=== PATIENT | male | born 2000 | race Caucasian/White ===

== ENCOUNTER 2021-03-12 06:32 | Emergency (ER) | payer OTHER, SELFPAY ==
[2021-03-12 06:36] VITALS: TEMP 35.7; BMI 35.9
--- NOTE | 2021-03-12 06:48 | ED_ITS ---
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 The dorsum of his foot has a small puncture wound which is increasingly tender and his foot is more swollen. He does not have any obvious cellulitis or lymphangitic spread. He is due for tetanus dating. Related Data Previous Rx's Medication Instructions Recorded sulfamethoxazole 800 1 tab PO BID #10 tab 03/12/21 mg-trimethoprim 160 mg tablet (Bactrim DS) Review of Systems Review of Systems Narrative: Remainder of complete review of systems is otherwise unremarkable except for that included in the HPI. Patient History Social History Smoking Status: Never smoker Smoking Status: Never smoker Substance Use Type: marijuana Exam Narrative Exam Narrative: General: Alert appropriate in no acute distress Respiratory: Able to speak in full sentences, no obvious respiratory distress Skin: No obvious rashes, warm and dry Neurologic: Grossly intact no obvious asymmetries or abnormalities Psych: appropriate insight and affect, cooperative Extremity: Puncture wound to the dorsum of the left forefoot with mild surrounding erythema, no drainage, no abscess development and no obvious lymphangitis spread Initial Vital Signs Initial Vital Signs: Vital Signs Temperature 96.2 F L 03/12/21 06:36 Course Orders Ordered: Discontinued Medications Tetanus/Diphtheria Toxoids (Tetanus Diphtheria Toxoids 0.5 Ml Vial) 0.5 ml IM .ONCE ONE Stop: 03/12/21 06:43 Last Admin: 03/12/21 06:50 Dose: 0.5 ml Documented by: ANGELICA Trimethoprim/Sulfamethoxazole (Trimeth/Sulfa 160/800 (Ds) Tablet) 1 tab PO NOW ONE Stop: 03/12/21 06:53 Last Admin: 03/12/21 06:55 Dose: 1 tab Documented by: ANGELICA Vital Signs Vital signs: Vital Signs - 8 hr 03/12/21 06:36 Temperature 96.2 F L MDM - Extremity Injury (Lower) MDM Narrative Medical decision making narrative: 20-year-old young man stepped on a nail through the bottom of a 10 issue with puncture wound to the dorsum of the left foot with increasing edema and pain. Wound has been cleaned thoroughly. He is given a tetanus update and will be started on Septra antibiotics for concerns of deeper tissue infection. Concerns are reviewed and he is safe for home discharge Discharge Plan Departure Patient Disposition: Home Clinical Impression: Puncture wound of foot Qualifiers: Encounter type: initial encounter Laterality: left Qualified Code(s): S91.332A - Puncture wound without foreign body, left foot, initial encounter Instructions: DI for Puncture Wound Activity Restrictions/Additional Instructions: Thank you for coming in today Your foot is definitely more swollen however you do not have any obvious abscess or cellulitis (infection of the skin). I a.m. concerned with stepping on the nail that you are developing an infection deeper and your foot causing the increased pain and the swelling. Using 400 mg of ibuprofen (2 yvkb-fyl-pevoqif pills) and 1 Tylenol every 6 hours can be very helpful in controlling pain. Keeping the foot elevated can also help over the next couple of days. Please complete the 5 day course of Septra, antibiotic. If you find that you are getting worse, there is now redness, drainage or red streaks heading appear like need to return to the emergency department You did have a tetanus shot today and should do well with this for the next 10 years and LEs you have another obvious injury. Prescriptions: New sulfamethoxazole-trimethoprim [Bactrim DS] 800-160 mg tablet 1 tab PO BID Qty: 10 RF: 0
[2021-03-12] MEDS: TETANUS DIPHTHERIA TOXOIDS 0.5 ML VIAL IM (06:50)
[2021-03-12] MEDS: TRIMETH/SULFA 160/800 (DS) TABLET 1 TAB PO (06:55)
== END 2021-03-12 07:08 | disposition home or self-care (01) ==
PROVIDERS: Emergency Provider Emergency Medicine
DX: S91.332A Puncture wound without foreign body, left foot, initial encounter (principal); W45.0XXA Nail entering through skin, initial encounter; Z23 Encounter for immunization
CPT/HCPCS: 90471; 90714; 99283

== ENCOUNTER 2021-05-10 10:08 | Emergency (ER) | payer OTHER, SELFPAY ==
[2021-05-10 10:24] VITALS: BP 113/56; PULSE 59; RESP 16; TEMP 36.7; O2SAT 99; BMI 38.9
--- NOTE | 2021-05-10 10:36 | ED.TRAUMA ---
HPI - Trauma General Chief Complaint: Trauma Stated Complaint: Fell of Roof 8'-10', Hip and Back Pain Time Seen by Provider: 05/10/21 10:35 Source: patient and family Mode of arrival: Ambulatory Limitations: no limitations History of Present Illness HPI narrative: This is a 20-year-old male who comes to emergency department after falling off the roof while at work Patient states this occurred yesterday. He was on a one-story housing addition. He states he sort of slid down the roof when his shoe fell off and then patient fell landing on his feet and then falling off to his left side onto dirt. Patient denies hitting his head. He denies loss of consciousness. His complaints are some lower lumbar pain and some left hip pain. He has been ambulating without issue. He denies any loss of bowel or bladder control. No numbness, tingling weakness. He states he has had a normal gait. He denies any chest pain or shortness of. No neck pain. Patient has not had any nausea or vomiting or other GI symptoms. He is otherwise healthy male. Up-to-date on immunizations. No prior surgeries. His only allergies are to bees. He is accompanied by his mother today. Related Data Allergies Allergy/AdvReac Type Severity Reaction Status Date / Time No Known Drug Allergies Allergy Verified 05/10/21 10:28 Review of Systems Review of Systems ROS Unobtainable: All systems reviewed & are unremarkable except as noted in HPI and below Patient History Social History Smoking Status: Never smoker Smoking Status: Never smoker alcohol intake frequency: 0-2 drinks per day Substance Use Type: does not use Exam Narrative Exam Narrative: GEN: Patient appears in mild distress. HEAD: No evidence of trauma, no raccoon/Agosto sign. NECK: Nontender, painless range of motion, trachea midline Negative Nexus criteria, there is no mid line tenderness, distracting injury, altered mental status, neuro deficit, recent EtOH. EYES: PERRLA, EOMI ENT: External inspection normal, trachea is midline, TM's are normal no hemotypanum, Nares are clear, no septal hematoma, no dental or oral injury, airway is normal and with normal occlusion, No bony tenderness RESP: Chest is nontender and has symmetric movement, no ecchymosis, breath sounds are normal no crackles, wheezes or rales CVS: Heart sounds are normal, no murmur noted, No JVD. ABG/GI: Nontender, soft, normal bowel sounds, no distention, no organomegaly, pelvic rock is negative NEURO: Oriented AOx3, neuro is grossly intact, sensation and motor is normal all 4 extremities moving, cranial nerves II through XII are intact, GCS is 15 PSYCH: Normal mood and affect SKIN: Intact, warm and dry, no crepitus and without decubitus. No ecchymosis or skin changes noted. BACK: No CVA tenderness, mild lower lumbar vertebral tenderness but no discrete point tenderness, no step-off's, no crepitus EXT: Atraumatic, Left hip is mildly tender, right hip is nontender. no pedal edema, normal color and temperature, normal range of motion of extremities with normal tendon exam, 2+ pulses in all four extremities Initial Vital Signs Initial Vital Signs: Vital Signs Temperature 98.1 F 05/10/21 10:24 Pulse Rate 59 L 05/10/21 10:24 Respiratory Rate 16 05/10/21 10:24 Blood Pressure 113/56 L 05/10/21 10:24 Pulse Oximetry 99 05/10/21 10:24 Course Orders Ordered: ED Orders 05/10/21 10:44 XR hip w pel if done LT 2V Stat XR lumbar spine 2-3V Stat Vital Signs Vital signs: Vital Signs - 8 hr 05/10/21 12:10 Pulse Rate 57 L Respiratory Rate 18 Blood Pressure 121/61 Pulse Oximetry 100 MDM - Trauma Imaging Data lsorono xray: Radiologist's Impression: Launch?[address] [address] XRay Report Signed Patient: Curtis White MR#: [id number] : 2000 Acct:[id number] Age/Sex: 20 / M Date of Service: 05/10/21 Loc: ED Accession Number: [id number] ?? Procedure: XR lumbar spine 2-3V Ordering Provider: Marce Escobar D.O. PROCEDURE:? XR LUMBAR SPINE 2-3V ? INDICATIONS:? fell off roof, ? TECHNIQUE:? 3 views of the lumbar spine were acquired.? ? COMPARISON:? None. ? FINDINGS:? ? Bones:? 5 eta-cmk-jopgayo vertebrae are present.? There is trace retrolisthesis of L5 on S1.? No vertebral body compression fractures.? No suspicious bony lesions.? ? Soft tissues:? Overlying bowel gas pattern is normal.? No suspicious soft tissue calcifications.? ? ? IMPRESSION:? No visualized acute fracture or dislocation. However, if clinical concern and/or pain persist, short interval imaging followup in 7-10 days is recommended, as occult injury cannot be definitively excluded. ? ? Dictated by: Marah Rodas M.D. on 05/10/2021 at 11:11 ? ? Approved by: Marah Rodas M.D. on 05/10/2021 at 11:14?? left hip xray: Radiologist's Impression: Launch?[place] [address] XRay Report Signed Patient: Curtis White MR#: [id number] : 2000 Acct:[id number] Age/Sex: 20 / M Date of Service: 05/10/21 Loc: ED Accession Number: [id number] ?? Procedure: XR hip w pel if done LT 2V Ordering Provider: Marce Escobar D.O. PROCEDURE:? XR HIP W PEL IF DONE LT 2V ? INDICATIONS:? fell off roof, left hip pain, low back pain ? TECHNIQUE:? AP pelvis with lateral view(s) of the leftNo visualized acute fracture or dislocation. However, if clinical concern and/or pain persist, short interval imaging followup in 7-10 days is recommended, as occult injury cannot be definitively excluded. hip(s).? ? COMPARISON:? None. ? FINDINGS:? ? Bones:? No fractures or dislocations.? Pelvic ring appears intact.? No suspicious bony lesions.? ? Soft tissues:? The visualized bowel gas pattern is normal.? No suspicious soft tissue calcifications.? ? ? IMPRESSION:? No visualized acute fracture or dislocation. However, if clinical concern and/or pain persist, short interval imaging followup in 7-10 days is recommended, as occult injury cannot be definitively excluded. ? Dictated by: Marah Rodas M.D. on 05/10/2021 at 11:10 ? ? Approved by: Marah Rodas M.D. on 05/10/2021 at 11:11? MDM Narrative Medical decision making narrative: This is a 20-year-old male who had a fall was approximately 10-12 feet from 1 story roof. Patient slid off the roof landing on his heels. Patient complaining of left hip and lower lumbar pain. Is fairly reassuring exam he has been weight-bearing, imaging does not show any acute fracture or injury. Return precautions discussed. Patient is recommended to follow up with L&I if he continues to have symptoms over the next week and asked to return if he has any worsening or concerning symptoms. Discharge Plan Departure Patient Disposition: Home Clinical Impression: Hip pain, left, Fall from roof as cause of accidental injury Low back pain Qualifiers: Chronicity: acute Back pain laterality: midline Sciatica presence: without sciatica Qualified Code(s): M54.5 - Low back pain Instructions: DI for Low Back Pain Activity Restrictions/Additional Instructions: Follow-up in the next week if you are not having improvement of your symptoms or if they are worsening in any way. Call L&I to set up a follow-up appointment. You may take Tylenol up to a 1000 mg every 8 hours and or ibuprofen up to 800 mg every 8 hours as needed for pain. Your x-ray imaging at this time does not show an obvious fracture or break. Please return for fevers, rapidly worsening pain, new numbness, tingling or weakness, loss of bowel or bladder control, difficulty or inability ambulate, or other new or concerning symptoms.
--- NOTE | 2021-05-10 10:44 | DI.RAD.S_ITS ---
PROCEDURE: XR HIP W PEL IF DONE LT 2V INDICATIONS: fell off roof, left hip pain, low back pain TECHNIQUE: AP pelvis with lateral view(s) of the leftNo visualized acute fracture or dislocation. However, if clinical concern and/or pain persist, short interval imaging followup in 7-10 days is recommended, as occult injury cannot be definitively excluded. hip(s). COMPARISON: None. FINDINGS: Bones: No fractures or dislocations. Pelvic ring appears intact. No suspicious bony lesions. Soft tissues: The visualized bowel gas pattern is normal. No suspicious soft tissue calcifications. IMPRESSION: No visualized acute fracture or dislocation. However, if clinical concern and/or pain persist, short interval imaging followup in 7-10 days is recommended, as occult injury cannot be definitively excluded. Dictated by: Marah Rodas M.D. on 05/10/2021 at 11:10 Approved by: Marah Rodas M.D. on 05/10/2021 at 11:11
--- NOTE | 2021-05-10 10:44 | DI.RAD.S_ITS ---
PROCEDURE: XR LUMBAR SPINE 2-3V INDICATIONS: fell off roof, TECHNIQUE: 3 views of the lumbar spine were acquired. COMPARISON: None. FINDINGS: Bones: 5 woo-xxz-zhuuxco vertebrae are present. There is trace retrolisthesis of L5 on S1. No vertebral body compression fractures. No suspicious bony lesions. Soft tissues: Overlying bowel gas pattern is normal. No suspicious soft tissue calcifications. IMPRESSION: No visualized acute fracture or dislocation. However, if clinical concern and/or pain persist, short interval imaging followup in 7-10 days is recommended, as occult injury cannot be definitively excluded. Dictated by: Marah Rodas M.D. on 05/10/2021 at 11:11 Approved by: Marah Rodas M.D. on 05/10/2021 at 11:14
[2021-05-10 12:10] VITALS: BP 121/61; PULSE 57; RESP 18; O2SAT 100
== END 2021-05-10 12:12 | disposition home or self-care (01) ==
PROVIDERS: Emergency Provider Emergency Medicine
DX: M54.5 Low back pain (principal); M25.552 Pain in left hip; W13.2XXA Fall from, out of or through roof, initial encounter; Y99.0 Civilian activity done for income or pay
CPT/HCPCS: 72100; 73502; 99283; 99284

== ENCOUNTER 2023-04-19 14:46 | Emergency (ER) | payer OTHER, SELFPAY ==
[2023-04-19 14:48] VITALS: BP 121/68; PULSE 55; RESP 18; TEMP 37.1; O2SAT 100; BMI 33.9
--- NOTE | 2023-04-19 14:54 | DI.RAD.S_ITS ---
PROCEDURE: XR RIBS LT MIN 3V W CXR1V INDICATIONS: fall/pain TECHNIQUE: 2 views of the left ribs were acquired, along with a single view chest. COMPARISON: None. FINDINGS: Surgical changes and devices: None. Bones and chest wall: No fractures or dislocations. No suspicious bony lesions. Overlying soft tissues appear unremarkable. Lungs and pleura: No pleural effusions or pneumothorax. Lungs appear clear. Mediastinum: Mediastinal contours appear normal. Heart size is normal. IMPRESSION: Chest without acute cardiopulmonary abnormalities. No acute, displaced rib fractures visualized. Dictated by: Rudy Stock M.D. on 04/19/2023 at 15:27 Approved by: Rudy Stock M.D. on 04/19/2023 at 15:28
--- NOTE | 2023-04-19 14:54 | DI.RAD.S_ITS ---
PROCEDURE: XR HIP W PEL IF DONE LT 2V INDICATIONS: fall/pain TECHNIQUE: AP pelvis with lateral view(s) of the right hip(s). COMPARISON: [facility], , XR HIP W PEL IF DONE LT 2V, 05/10/2021, 10:42. FINDINGS: Bones: No fractures or dislocations. Pelvic ring appears intact. No suspicious bony lesions. Soft tissues: The visualized bowel gas pattern is normal. No suspicious soft tissue calcifications. IMPRESSION: Right hip without acute fracture or dislocation. If there are persistent symptoms or clinical suspicion for pathology, then repeat radiographs or advanced imaging (CT or MRI) may be considered for further evaluation. Dictated by: Rudy Stock M.D. on 04/19/2023 at 15:28 Approved by: Rudy Stock M.D. on 04/19/2023 at 15:29
--- NOTE | 2023-04-19 14:54 | ED_ITS ---
HPI - Back Pain/Injury General Chief Complaint: Back Pain/Injury Stated Complaint: Fell from roof Time Seen by Provider: 04/19/23 14:53 Source: patient History of Present Illness HPI Narrative: This is a 22-year-old male presents emergency department after falling off a roof. Patient reports that he lost his footing yesterday afternoon and fell off and on proximally 8 ft roof. States he landed and injured his hips, more on the left side as well as his left ribs. He states he hit his head but did not lose conscious. He denies any nausea, vomiting, dizziness, or any other concerning symptoms. Also complaining of mild left sided cervical pain. Denies any chest pain, shortness breath, abdominal pain, or any other concerning signs or symptoms. Related Data Allergies Allergy/AdvReac Type Severity Reaction Status Date / Time No Known Drug Allergies Allergy Verified 05/10/21 10:28 Review of Systems Review of Systems Narrative: GENERAL: Denies chills, fatigue, malaise, fever, sweats. HEENT: Denies sinus pain, ear pain, sore throat, difficulty swallowing, dizziness. RESPIRATORY: Denies dyspnea, cough, wheezing, hemoptysis, sputum. CARDIOVASCULAR: Denies chest pain, palpitations, orthopnea, edema, GASTROINTESTINAL: Denies nausea, vomiting, abdominal pain, diarrhea, constipation, melena. : Denies dysuria, frequency, incontinence, hematuria, urinary retention. MUSCULOSKELETAL: Reports right hip, left rib, and left neck pain. SKIN: Denies rash, skin lesions, or other NEUROLOGIC: Denies weakness, headache, numbness, change in speech, confusion, seizures, incoordination. PSYCHIATRIC: No concerning psychosocial issues. 12 point review of systems is negative except for those stated above Patient History Social History Smoking Status: Never smoker Smoking Status: Never smoker alcohol intake frequency: holidays/special occasions only Substance Use Type: marijuana Exam Narrative Exam Narrative: GENERAL: Well-developed patient, in mild distress. HEAD: Atraumatic. Normocephalic. EYES: Pupils equal round and reactive. Extraocular motions intact. No scleral icterus. No injection or drainage. ENT: Nose without bleeding, purulent drainage. Throat without erythema, tonsillar hypertrophy or exudate. Airway patent. NECK: Trachea midline. Non tender CARDIOVASCULAR: Regular rate and rhythm without murmurs, gallops, or rubs. Tenderness to palpation to the anterior left ribs, no crepitus felt. RESPIRATORY: Clear to auscultation. Breath sounds equal bilaterally. No wheezes, rales, or rhonchi. GASTROINTESTINAL: Abdomen soft, non-tender, nondistended. EXTREMITIES: Tenderness to palpation to the right hip BACK: Nontender without deformity or crepitance. No flank tenderness. Tenderness to palpation to the cervical paraspinal muscles. NEURO: AOx3. SKIN: No rash or erythema of visible areas Initial Vital Signs Initial Vital Signs: Vital Signs Temperature 98.7 F 04/19/23 14:48 Pulse Rate 55 L 04/19/23 14:48 Respiratory Rate 18 04/19/23 14:48 Blood Pressure 121/68 04/19/23 14:48 Pulse Oximetry 100 04/19/23 14:48 Oxygen Delivery Method Room Air 04/19/23 14:48 Course Orders Ordered: ED Orders 04/19/23 14:54 XR hip w pel if done LT 2V Stat XR ribs LT min 3V w CXR1V Stat Vital Signs Vital signs: Vital Signs - 8 hr 04/19/23 14:48 Temperature 98.7 F Pulse Rate 55 L Respiratory Rate 18 Blood Pressure 121/68 Pulse Oximetry 100 Oxygen Delivery Method Room Air MDM - Back Pain/Injury Imaging Data Extremity x-ray #1: Radiologist's Impression: [address] [address] XRay Report Signed Patient: Curtis White MR#: [id number] : 2000 Acct:[id number] Age/Sex: 22 / M Date of Service: 04/19/23 Loc: ED Accession Number: [id number] ?? Procedure: XR hip w pel if done LT 2V Ordering Provider: Marce Burton MD PROCEDURE:? XR HIP W PEL IF DONE LT 2V ? INDICATIONS:? fall/pain ? TECHNIQUE:? AP pelvis with lateral view(s) of the right hip(s).? ? COMPARISON:? [facility], CR, XR HIP W PEL IF DONE LT 2V, 05/10/2021, 10:42. ? FINDINGS:? ? Bones:? No fractures or dislocations.? Pelvic ring appears intact.? No suspicious bony lesions.? ? Soft tissues:? The visualized bowel gas pattern is normal.? No suspicious soft tissue calcifications.? ? ? IMPRESSION:? Right hip without acute fracture or dislocation. ? If there are persistent symptoms or clinical suspicion for pathology, then repeat radiographs or advanced imaging (CT or MRI) may be considered for further evaluation. ? ? ? Dictated by: Rudy Stock M.D. on 04/19/2023 at 15:28 ? ? Approved by: Rudy Stock M.D. on 04/19/2023 at 15:29 ? L rib XR: Radiologist's Impression: [address] [address] XRay Report Signed Patient: Curtis White MR#: [id number] : 2000 Acct:[id number] Age/Sex: 22 / M Date of Service: 04/19/23 Loc: ED Accession Number: [id number] ?? Procedure: XR ribs LT min 3V w CXR1V Ordering Provider: Marec Burton MD PROCEDURE:? XR RIBS LT MIN 3V W CXR1V ? INDICATIONS:? fall/pain ? TECHNIQUE:? 2 views of the left ribs were acquired, along with a single view chest.? ? COMPARISON:? None. ? FINDINGS:? ? Surgical changes and devices:? None.? ? Bones and chest wall:? No fractures or dislocations.? No suspicious bony lesions.? Overlying soft tissues appear unremarkable.? ? Lungs and pleura:? No pleural effusions or pneumothorax.? Lungs appear clear.? ? Mediastinum:? Mediastinal contours appear normal.? Heart size is normal.? ? IMPRESSION:? Chest without acute cardiopulmonary abnormalities.? No acute, displaced rib fractures visualized. ? ? Dictated by: Rudy Stock M.D. on 04/19/2023 at 15:27 ? ? Approved by: Rudy Stock M.D. on 04/19/2023 at 15:28 ? MDM Narrative Medical decision making narrative: MDM * differential diagnosis includes but not limited to pelvic fracture, left rib fracture * Prior records reviewed: Patient was seen here 2 years ago after falling off a roof as well. X-rays ordered which showed no fractures. * My lab interpretation: None * My imaging interpretation: X-rays negative for fractures * Clinical Decision Rules/Scores evaluated: None * Independent discussions with: None ED Course: This is a 22-year-old male presents emergency department after falling off a roof. He did present with some neck pain but primarily to the left paraspinal muscle area and did not have any midline tenderness to palpation. No CT C-spine ordered. Patient was having right hip and left rib pain x-rays were negative. Will discharge home with instructions for conservative management. Shared Decision Making: Discussed plan with patient who is comfortable with the plan. Social Considerations: None Disposition: Discharged home Discharge Plan Departure Patient Disposition: Home Clinical Impression: Fall Activity Restrictions/Additional Instructions: Thank you for coming to the [facility] Emergency Department today. Your hip and rib x-rays were negative for fractures. I suspect her symptoms should improve over the next couple of days with light activity, and ibuprofen and Tylenol as needed for the pain. Please be careful with future jaime. I hope you feel better soon. Please follow up with your primary care provider within a week. If you do not have a primary care provider please contact the [facility] Resource line at [phone]. They will ask some questions about your medical history and help you get set up with a provider in the community. Stand Alone Forms: Patient Portal/API, Work Release Note
== END 2023-04-19 15:53 | disposition home or self-care (01) ==
PROVIDERS: Emergency Provider Physician Assistant Medical
DX: M54.2 Cervicalgia (principal); M25.551 Pain in right hip; R07.81 Pleurodynia; W17.89XA Other fall from one level to another, initial encounter; Y99.0 Civilian activity done for income or pay
CPT/HCPCS: 71101; 73502; 99281; 99283

== ENCOUNTER 2024-09-18 16:49 | Emergency (ER) | payer OTHER, SELFPAY ==
[2024-09-18 17:02] VITALS: BP 153/74; PULSE 64; RESP 14; TEMP 36.4; O2SAT 100; BMI 38.0
--- NOTE | 2024-09-18 17:09 | DI.RAD.S_ITS ---
PROCEDURE: XR ANKLE LT MIN 3V INDICATIONS: fall with pain yesterday TECHNIQUE: 3 views of the ankle were acquired. COMPARISON: None. FINDINGS: Bones: No fractures or dislocations. Ankle mortise is normally aligned. No suspicious bony lesions. Soft tissues: Moderate tibiotalar joint effusion. Achilles tendon appears normal. IMPRESSION: No acute bony abnormality. Moderate joint effusion. Internal derangement not excluded. Dictated by: Lawrence Espinoza M.D. on 09/18/2024 at 17:26 Approved by: Lawrence Espinoza M.D. on 09/18/2024 at 17:27
[2024-09-18 17:26] VITALS: PULSE 74
--- NOTE | 2024-09-18 17:51 | ED.LOWEXIN ---
HPI - Extremity Injury (Lower) <Blanca Contreras PA-C - Last Filed: 09/18/24 20:04> General Chief Complaint: Extremity Injury, Lower Stated Complaint: Twisted left ankle yest; swollen and bruised Time Seen by Provider: 09/18/24 17:51 Source: patient Mode of arrival: Ambulatory History of Present Illness HPI Narrative: Curtis White is a very pleasant 24-year-old male with no reported past medical history who presents to emergency department for left ankle injury that occurred yesterday. Patient states he was jumping out of a truck landing on his left foot when he accidentally landed on a backpack causing his left ankle to roll inward, landing directly on the lateral aspect of the ankle. He has been having worsening pain and swelling of the left ankle since then. Pain with weight-bearing as well. No other injuries from the fall. Denies any other concerns. He took Tylenol earlier today. 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 Related Data Allergies Allergy/AdvReac Type Severity Reaction Status Date / Time No Known Drug Allergies Allergy Verified 05/10/21 10:28 Review of Systems <Blanca Contreras PA-C - Last Filed: 09/18/24 20:04> Review of Systems ROS Unobtainable: All systems reviewed & are unremarkable except as noted in HPI and below Patient History <Blanca Contreras PA-C - Last Filed: 09/18/24 20:04> Social History Smoking Status: Never smoker Smoking Status: Never smoker alcohol intake frequency: holidays/special occasions only Exam <Blanca Contreras PA-C - Last Filed: 09/18/24 20:04> Narrative Exam Narrative: GENERAL: 24 year old patient appears stated age. Well-developed patient, in no acute distress. HEAD: Atraumatic. Normocephalic. CARDIOVASCULAR: Regular rate and rhythm. RESPIRATORY: ?Nonlabored respirations. ?Speaking in clear, full sentences. ?Clear to auscultation. Breath sounds equal bilaterally. No wheezes, rales, or rhonchi. ? EXTREMITIES: Left ankle with diffuse edema, ecchymosis on the lateral aspect with tenderness to palpation of the lateral malleolus. No focal tenderness on the left foot, strong DP and PT pulse, brisk capillary refill. No pain of the benitez or knee, no pain on the remainder of the appendicular skeleton. NEURO: AOx3. ?Clear speech. ?Sensation intact to light touch on bilateral plantar and dorsal feet. SKIN: No rash or wounds except for ecchymosis on left ankle as described above. Initial Vital Signs Initial Vital Signs: Vital Signs Temperature 97.6 F 09/18/24 17:02 Pulse Rate 64 09/18/24 17:02 Respiratory Rate 14 09/18/24 17:02 Blood Pressure 153/74 H 09/18/24 17:02 Pulse Oximetry 100 09/18/24 17:02 Oxygen Delivery Method Room Air 09/18/24 17:02 <DO Sherice Andrade Last Filed: 09/18/24 20:27> Initial Vital Signs Initial Vital Signs: Vital Signs Temperature 97.6 F 09/18/24 17:02 Pulse Rate 64 09/18/24 17:02 Respiratory Rate 14 09/18/24 17:02 Blood Pressure 153/74 H 09/18/24 17:02 Pulse Oximetry 100 09/18/24 17:02 Oxygen Delivery Method Room Air 09/18/24 17:02 Course <Blanca Contreras PA-C - Last Filed: 09/18/24 20:04> Orders Ordered: ED Orders 09/18/24 17:09 XR ankle LT min 3V Stat Discontinued Medications Hydrocodone Bitart/Acetaminophen (Hydrocodone/Acet 5/325 Tablet) 1 tab PO NOW ONE Stop: 09/18/24 18:02 Last Admin: 09/18/24 18:08 Dose: 1 tab Documented By: JERRI Ibuprofen (Ibuprofen 400 Mg Tablet) 600 mg PO NOW ONE Stop: 09/18/24 18:02 Last Admin: 09/18/24 18:08 Dose: 600 mg Documented By: RB Vital Signs Vital signs: Vital Signs - 8 hr 09/18/24 17:02 09/18/24 17:26 09/18/24 18:53 Temperature 97.6 F 97.8 F Pulse Rate 64 84 Pulse Rate [Left Dorsalis Pedis] 74 Respiratory Rate 14 18 Blood Pressure 153/74 H 143/72 H Pulse Oximetry 100 99 Oxygen Delivery Method Room Air Room Air <DO Sherice Andrade Last Filed: 09/18/24 20:27> Orders Ordered: ED Orders 09/18/24 17:09 XR ankle LT min 3V Stat Discontinued Medications Hydrocodone Bitart/Acetaminophen (Hydrocodone/Acet 5/325 Tablet) 1 tab PO NOW ONE Stop: 09/18/24 18:02 Last Admin: 09/18/24 18:08 Dose: 1 tab Documented By: JERRI Ibuprofen (Ibuprofen 400 Mg Tablet) 600 mg PO NOW ONE Stop: 09/18/24 18:02 Last Admin: 09/18/24 18:08 Dose: 600 mg Documented By: RB Vital Signs Vital signs: Vital Signs - 8 hr 09/18/24 17:02 09/18/24 17:26 09/18/24 18:53 Temperature 97.6 F 97.8 F Pulse Rate 64 84 Pulse Rate [Left Dorsalis Pedis] 74 Respiratory Rate 14 18 Blood Pressure 153/74 H 143/72 H Pulse Oximetry 100 99 Oxygen Delivery Method Room Air Room Air MDM - Extremity Injury (Lower) <Blacna Contreras PA-C - Last Filed: 09/18/24 20:04> Medical Records Attestation: I reviewed the patient's medical records. Imaging Data Left Ankle X-Ray: My Impression: On my independent interpretation of left ankle x-ray there is no fracture of the lateral malleolus. Radiologist's Impression: PROCEDURE: XR ANKLE LT MIN 3V INDICATIONS: fall with pain yesterday TECHNIQUE: 3 views of the ankle were acquired. COMPARISON: None. FINDINGS: Bones: No fractures or dislocations. Ankle mortise is normally aligned. No suspicious bony lesions. Soft tissues: Moderate tibiotalar joint effusion. Achilles tendon appears normal. IMPRESSION: No acute bony abnormality. Moderate joint effusion. Internal derangement not excluded. [facility] Narrative Medical decision making narrative: 24-year-old male with no reported past medical history who presents to emergency department for left ankle injury that occurred yesterday. His contributes to the history. Differential diagnosis includes but is not limited to ankle fracture, ankle sprain, ankle strain, contusion, torn and anterior talofibular ligament, torn calcaneofibular ligament, etc.. On exam the patient is in no acute distress, nontoxic appearing, he is uncomfortable with significant pain of lateral left ankle. He has no other injuries and left foot is neurovascularly intact. Ankle x-ray obtained in triage. We will treat pain with hydrocodone-acetaminophen and ibuprofen. X-ray negative for acute bony abnormality. There is a moderate tibial talar joint effusion. Internal derangement not excluded. Symptoms most likely result of ankle sprain/injuries the lateral ligaments. Discussed with the patient options for left ankle splint versus orthopedic boot. He feels most comfortable with boot and I agree that this will provide good support and allow him to weight bear as tolerated. He was provided with crutches as needed. Advised patient to follow up with Orthopedics for further evaluation. Recommended rice therapy, ibuprofen/Tylenol. Discussed strict ED return precautions. Patient was provided with a work note for light duty. Patient verbalized understanding of all information and is happy with the plan. He is stable for discharge home, has a ride home. Discharge Plan Departure Patient Disposition: Home Clinical Impression: Effusion of ankle joint, left Left ankle sprain Qualifiers: Encounter type: initial encounter Involved ligament of ankle: unspecified ligament Qualified Code(s): S93.402A - Sprain of unspecified ligament of left ankle, initial encounter Instructions: DI for Ankle Sprain Activity Restrictions/Additional Instructions: Dear Mr. Boyles, Thank you for coming into the emergency department today. You were evaluated for left ankle pain and swelling after an injury that occurred yesterday. An x-ray was obtained of your left ankle which shows no fractures or breaks in the bone but you do have a moderate tibiotalar joint effusion. You have sprained the left ankle and likely injured some of the underlying ligaments. It is very important to continue using orthopedic boot for support and crutches if needed. Please call to schedule an appointment with [facility] for further evaluation. [phone]. Please use RICE therapy for your pain in addition to ibuprofen/acetaminophen. Rest the painful area. Ice the area of pain/swelling for at least 15 minutes, 4x a day. Compress the area of swelling using a brace, wrap, or splint if applied. Elevate the painful or swollen extremity by supporting it above the level of the heart with pillows when sitting or laying. Please take Ibuprofen (Motrin/Advil) or Acetaminophen (Tylenol) for pain. These are available over the counter. You may take Ibuprofen 600 mg every 8 hours with food for pain. You may also take Acetaminophen 650 mg every 4-6 hours for pain. Do not exceed 3000 mg of Tylenol a day as this can cause liver damage. Do not drink alcohol with either of these medications. Please follow up with your primary care doctor within the next 2-3 days for ER follow-up. (If you do not have a PCP you can call [phone]. ?to schedule an appointment with an [facility] Primary Care Provider) IF YOU DEVELOP ANY NEW OR WORSENING SYMPTOMS, RETURN TO THE ER! Please read the attached instructions, they highlight more specific treatments and interventions for you at home. Thank you for letting me participate in your care, Blanca Contreras PA-C Stand Alone Forms: Patient Portal/API/Survey, Work Release Note ED Sign-out <Yordan Zhang, DO - Last Filed: 09/18/24 20:27> Cosign ED Attending Cosignature Attestation: Dr Zhang Co-Sign Statement: I was available for consultation during this patient's emergency department visit. This chart is signed by myself for administrative purposes only. I did not have direct contact with this patient during this visit. They were seen independently by the APC.
[2024-09-18] MEDS: IBUPROFEN 400 MG TABLET 600 MG PO (18:08)
[2024-09-18] MEDS: HYDROCODONE/ACET 5/325 TABLET 1 TAB PO (18:08)
[2024-09-18 18:53] VITALS: BP 143/72; PULSE 84; RESP 18; TEMP 36.6; O2SAT 99
== END 2024-09-18 18:54 | disposition home or self-care (01) ==
PROVIDERS: Emergency Provider Physician Assistant
DX: S93.402A Sprain of unspecified ligament of left ankle, initial encounter (principal); M25.472 Effusion, left ankle; W17.89XA Other fall from one level to another, initial encounter
CPT/HCPCS: 73610; 99283